=== PATIENT | female | born 1990 | race Caucasian/White ===

== ENCOUNTER 2019-04-12 04:52 | Emergency (ER) | payer OTHER, SELFPAY ==
[2019-04-12 04:55] VITALS: BP 132/76; PULSE 78; RESP 20; TEMP 36.6; O2SAT 98
[2019-04-12] MEDS: SODIUM CHLORIDE 0.9% 1,000 ML 1000 ML IV (05:24)
[2019-04-12] MEDS: KETOROLAC 60 MG/2 ML VIAL 15 MG IV (05:24)
[2019-04-12] MEDS: DEXAMETHASONE 10 MG/ML VIAL IV (05:25)
[2019-04-12] MEDS: diphenhydrAMINE 50 MG/ML VIAL 25 MG IV (05:29)
[2019-04-12] MEDS: METOCLOPRAMIDE 10 MG/2 ML INJ IV (05:30)
--- NOTE | 2019-04-12 05:44 | ED_ITS ---
HPI - Headache General Chief Complaint: Headache Stated Complaint: severe migraine vomiting Time Seen by Provider: 04/12/19 04:57 Source: patient and family Mode of arrival: ambulatory Limitations: no limitations History of Present Illness HPI Narrative: 28-year-old female nonsmoker with history of migraines presents to the emergency department with a chief complaint of a generalized migraine type headache which started this morning. She states is worse with bright lights and loud noise, and improves in a dark room. She admits to nausea but denies vomiting. She has had no fever, chills nor neck pain. She denies any trauma MD Complaint: migraine Onset (ago): hour(s) Onset description: sudden Location: diffuse Severity: similar to previous episodes Severity scale (1-10): 7 Quality: throbbing Relieving factors: dark room Exacerbating factors: light and noise Context: occurred at rest Associated symptoms: nausea Related Data Allergies Allergy/AdvReac Type Severity Reaction Status Date / Time No Known Drug Allergies Allergy Verified 04/12/19 05:44 Review of Systems Constitutional Denies chills, Denies fever(s), Reports headache(s), Denies lethargy and Denies weakness Eyes Denies change in vision, Denies eye discharge, Denies irritation and Denies loss of vision ENT Ears, Nose, Mouth, and Throat: Denies change in voice, Reports headache(s), Denies neck pain and Denies sore throat Cardiovascular Denies chest pain, Denies irregular heart rhythm, Denies lightheadedness, Denies palpitations, Denies dyspnea, Denies dyspnea on exertion and Denies orthopnea Respiratory Denies cough, Denies dyspnea, Denies dyspnea on exertion and Denies wheezing Gastrointestinal Gastrointestinal: Denies abdominal pain, Denies change in bowel habits, Denies diarrhea, Denies nausea and Denies vomiting Genitourinary Denies hematuria, Denies flank pain, Denies urinary incontinence and Denies urinary urgency Musculoskeletal Denies neck pain Integumentary/Breasts Denies pruritus, Denies erythema, Denies rash and Denies wounds Neurologic Denies confusion, Reports headache(s), Denies loss of vision and Denies weakness Psychiatric Denies anxiety, Denies confusion, Denies depression, Denies homicidal ideation and Denies suicidal ideation Endocrine Denies palpitations Hematologic/Lymphatic Denies easy bruising Allergic/Immunologic Denies wheezing Exam Narrative Exam Narrative: GENERAL: [28] year old patient appears stated age. Well- nourished, well-developed patient, in mild distress. HEAD: Atraumatic. Normocephalic. EYES: Pupils equal round and reactive. Extraocular motions intact. No scleral icterus. No injection or drainage. ENT: Nose without bleeding, purulent drainage. Throat without erythema, tonsillar hypertrophy or exudate. Airway patent. NECK: Trachea midline. Non tender CARDIOVASCULAR: Regular rate and rhythm without murmurs, gallops, or rubs. RESPIRATORY: Clear to auscultation. Breath sounds equal bilaterally. No wheezes, rales, or rhonchi. GASTROINTESTINAL: Abdomen soft, mild LUQ tenderness, nondistended. EXTREMITIES: No edema or joint tenderness. BACK: Nontender without deformity or crepitance. No flank tenderness. NEURO: AOx3. SKIN: No rash or erythema of visible areas NIH Stroke Scale 1a. LOC: Patient is alert and keenly responsive (0) 1b. LOC Questions: Patient answers both LOC questions accurately (0) 1c. LOC Commands: Patient performs both tasks correctly (0) 2. Best Gaze: Normal (0) 3. Visual: No visual loss (0) 4. Facial palsy: Normal symmetrical movements (0) 5. Motor arm: No drift (0) 6. Motor leg: No drift (0) 7. Limb ataxia: Absent (0) 8. Sensory: Normal (0) 9. Best language: No aphasia; normal (0) 10. Dysarthria: Normal (0) 11. Extinction and inattention: No abnormality (0) NIHSS: 0 Initial Vital Signs Initial Vital Signs: Vital Signs Temperature 97.8 F 04/12/19 04:55 Pulse Rate 78 04/12/19 04:55 Respiratory Rate 20 04/12/19 04:55 Blood Pressure 132/76 04/12/19 04:55 Pulse Oximetry 98 04/12/19 04:55 Course Orders Ordered: Sodium Chloride (Normal Saline 0.9%) 1,000 mls @ 1,000 mls/hr IV BOLUS ONE Stop: 04/12/19 06:16 Last Admin: 04/12/19 05:24 Dose: 1,000 mls/hr Discontinued Medications Dexamethasone (Decadron) 10 mg IV NOW ONE Stop: 04/12/19 05:18 Last Admin: 04/12/19 05:25 Dose: 10 mg Diphenhydramine HCl (Benadryl) 25 mg IV NOW ONE Stop: 04/12/19 05:18 Last Admin: 04/12/19 05:29 Dose: 25 mg Ketorolac Tromethamine (Toradol) 15 mg IV NOW ONE Stop: 04/12/19 05:18 Last Admin: 04/12/19 05:24 Dose: 15 mg Metoclopramide HCl (Reglan) 10 mg IV NOW ONE Stop: 04/12/19 05:18 Last Admin: 04/12/19 05:30 Dose: 10 mg Vital Signs - 8 hr 04/12/19 04:55 Temperature 97.8 F Pulse Rate 78 Respiratory Rate 20 Blood Pressure 132/76 Pulse Oximetry 98 MDM - Headache Imaging Data Chest x-ray: Radiologist's impression: non specific bowel gas pattern Discharge Plan Departure Patient Disposition: Home Clinical Impression: Migraine Qualifiers: Migraine type: unspecified Status migrainosus presence: without status migrainosus Intractability: not intractable Qualified Code(s): G43.909 - Migraine, unspecified, not intractable, without status migrainosus Instructions: DI for Headache Activity Restrictions/Additional Instructions: *You have been diagnosed with [migraine-type headache] *What to do: * continue to take medications as directed *Follow up with your primary care provider in 2-3 days, call for an appointment. Let them know you were seen in the Emergency Department and that we ask that you be seen in follow up *Return to ER if you should have any new, worsening or concerning symptoms
[2019-04-12 06:35] VITALS: BP 130/70; PULSE 72; RESP 20; O2SAT 98
--- NOTE | 2019-04-12 06:35 | PC.NURSE ---
1000 ml NS infused.
== END 2019-04-12 06:35 | disposition home or self-care (01) ==
PROVIDERS: Emergency Provider Emergency Medicine
DX: G43.909 Migraine, unspecified, not intractable, without status migrainosus (principal)
CPT/HCPCS: 96361; 96374; 96375; 99282; 99284; J1100; J1200; J1885; J2765